=== PATIENT | female | born 2005 | race Caucasian/White ===

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

== ENCOUNTER → 2023-02-18 12:18 | Outpatient (BNVA) | payer BC, SELFPAY | PROVIDERS: PCP Family Medicine; Visit Provider Family Medicine | DX: R73.09 Other abnormal glucose (principal); R73.01 Impaired fasting glucose | CPT/HCPCS: 80053; 82607; 82746; 83036; 84439; 84443; 85025 ==

== ENCOUNTER 2024-06-16 12:04 | Outpatient (CLI) | payer BC, SELFPAY ==
--- NOTE | 2024-06-16 16:00 | MR_ITS ---
WS: [id number] MRI RIGHT KNEE NONCONTRAST TECHNIQUE: Axial PD, coronal PD fat sat, coronal PD, sagittal PD, and sagittal PD fat-sat images obtained. CLINICAL INFORMATION: possible ACL and medial Collateral ligament tear COMPARISON: None. FINDINGS: Distal quadriceps and patellar tendons are intact. High-grade partial tear involving the ACL with T2 signal abnormality. PCL appears intact. Moderate suprapatellar effusion. Mild lateral subluxation of the patella. Medial and lateral patellar retinacula appear intact. Bony contusions involving the lateral femoral condyle and posterior medial and lateral tibial plateau with diffuse edema. Fluid and edema along the medial collateral ligament compatible with grade 1-2 injury which appears grossly intact. Lateral collateral ligament appears intact. Normal popliteus. Medial and lateral meniscus appear intact. Nondisplaced subchondral fracture involving the posterior medial tibial plateau with diffuse edema. MR/MR knee RT wo con* [id number] IMPRESSION: 1. Suspected high-grade partial tear of the ACL with irregularity and edema al kayla the ACL fibers. Some intact fibers are visualized. 2. PCL appears intact. 3. Moderate suprapatellar effusion. 4. Bony contusions involving the lateral femoral condyle and posterior medial and lateral tibial plateaus. Tiny nondisplaced fracture involving the posterior medial tibial plateau. 5. Grade 1-2 injury involving the medial collateral ligament which appears sharlene ssly intact. 6. Mild lateral subluxation of the patella with a somewhat shallow trochlear g roove. Recommend correlation for patellar instability. Outbridge grading: grade I: focal areas of hyperintensity with normal contour
== END 2024-06-16 12:05 | disposition home or self-care (01) ==
LOC: RAD 12:05
PROVIDERS: PCP Family Medicine; Visit Provider Family Medicine
DX: S83.011A Lateral subluxation of right patella, initial encounter (principal); S80.01XA Contusion of right knee, initial encounter; S82.144A Nondisplaced bicondylar fracture of right tibia, initial encounter for closed fracture; X58.XXXA Exposure to other specified factors, initial encounter; R93.6 Abnormal findings on diagnostic imaging of limbs; M25.461 Effusion, right knee
CPT/HCPCS: 73721

== ENCOUNTER → 2024-07-25 16:16 | Outpatient (BNVA) | payer BC, SELFPAY | PROVIDERS: PCP Family Medicine; Visit Provider Obstetrics & Gynecology | DX: Z01.419 Encounter for gynecological examination (general) (routine) without abnormal findings (principal) | CPT/HCPCS: 88175 ==